=== PATIENT | male | born 1980 | race Two or more races ===

== ENCOUNTER 2021-04-25 10:08 | Inpatient (IN) | payer OTHER ==
[~2021-04-25] VITALS: Ht 167.6 cm; Wt 83.0 kg
[2021-05-04] MEDS ORDERED: MEDROLPACK PO (09:23)
== END 2021-05-04 17:09 | disposition home or self-care (01) | DRG 177 ==
LOC: ER 10:08 → MEDJ 15:07
PROVIDERS: ADMIT Internal Medicine; ATTEND Internal Medicine
PROC: BW25ZZZ Computerized Tomography (CT Scan) of Chest, Abdomen and Pelvis (ICD-10-PCS; principal; 2021-04-25)
PROC: 4A033R1 Measurement of Arterial Saturation, Peripheral, Percutaneous Approach (ICD-10-PCS; 2021-04-25)
PROC: 3E0F7SF Introduction of Other Gas into Respiratory Tract, Via Natural or Artificial Opening (ICD-10-PCS; 2021-04-25)
PROC: 8E0ZXY6 Isolation (ICD-10-PCS; 2021-04-25)
PROC: XW033E5 Introduction of Remdesivir Anti-infective into Peripheral Vein, Percutaneous Approach, New Technology Group 5 (ICD-10-PCS; 2021-04-26)
DX: U07.1 COVID-19 (principal); J12.82 Pneumonia due to coronavirus disease 2019; K29.60 Other gastritis without bleeding; Z20.822 Contact with and (suspected) exposure to COVID-19; R09.02 Hypoxemia

== ENCOUNTER 2021-05-25 10:41 | Outpatient (CLI) | payer OTHER ==
[~2021-05-25 10:41] MED LIST: MEDROLPACK PO
== END 2021-05-25 10:54 | disposition home or self-care (01) ==
LOC: RAD 10:41
DX: R07.89 Other chest pain (principal); J16.8 Pneumonia due to other specified infectious organisms

== ENCOUNTER 2022-12-30 09:56 | Emergency (ER) | payer OTHER ==
[~2022-12-30] VITALS: Ht 167.6 cm; Wt 81.6 kg
[2022-12-30] MEDS ORDERED: MOTION SICKNESS25 M1 PO (15:09)
== END 2022-12-30 15:28 | disposition home or self-care (01) ==
LOC: ER 09:56
DX: R42 Dizziness and giddiness (principal); Z20.822 Contact with and (suspected) exposure to COVID-19